=== PATIENT | female | born 1970 | race Caucasian/White ===

== ENCOUNTER 2016-12-07 14:11 | Inpatient (IN) | payer OTHER ==
[~2016-12-07] VITALS: Ht 160 cm; Wt 78.1 kg
[2016-12-07 16:48] LABS: BASOPHIL % 0.9 % (0-2); PLATELET COUNT 270 x10^3mcL (130-400); RED CELL DISTRIBUTION WIDTH 12.3 % (11.5-14.5)
[2016-12-07 16:54] LABS: CALCIUM 9.1 mg/dL (8.5-10.1); CARBON DIOXIDE 20.3 mmol/L (21-32); CHLORIDE SERUM 106 mmol/L (98-107); CREATININE SERUM 0.8 mg/dL (0.6-1.0); GFR1 > 60 mL/min; GLUCOSE SERUM 92 mg/dL (74-106); POTASSIUM SERUM 3.7 mmol/L (3.5-5.1); SODIUM SERUM 141 mmol/L (136-145)
[2016-12-07 16:59] LABS: ALBUMIN 3.6 g/dL (3.4-5.0); ALKALINE PHOSPHATASE 68 U/L (46-116); ALT/SGPT 15 U/L (14-59); AST/SGOT 12 U/L (15-37); BILIRUBIN TOTAL 0.37 mg/dL (0.20-1.00); TOTAL PROTEIN, SERUM 6.9 g/dL (6.4-8.2)
[2016-12-07] MEDS ORDERED: ESCITALOPRAM10 M1 PO (17:27)
[2016-12-07] MEDS ORDERED: PREMPRO 0.625-1 EACH PO (17:27)
[2016-12-07 18:02] LABS: UA SPECIFIC GRAVITY <=1.005 (1.005-1.035); microscopic required? YES; urine erythrocyte TRACE (NEGATIVE)
[2016-12-07 18:29] VITALS: BP 174/95
[2016-12-07 18:34] VITALS: BP 174/99
[2016-12-07 18:35] VITALS: Ht 160 cm; Wt 78.1 kg
[2016-12-07 19:24] VITALS: BP 146/93
[2016-12-07 21:44] VITALS: BP 113/80
[2016-12-08 06:00] VITALS: BP 138/91
[2016-12-08 09:08] VITALS: BP 152/97
[2016-12-08 12:47] VITALS: BP 145/83
[2016-12-08 14:07] LABS: CHOLESTEROL/HDL RATIO 4.1
[2016-12-08 17:03] LABS: T3 TOTAL 0.96 ng/mL
[2016-12-08 17:05] LABS: FREE T4 0.76 ng/dL (0.76-1.46)
[2016-12-08 18:16] VITALS: BP 127/86
[2016-12-08 19:07] LABS: AMPHETAMINE QUAL UR NONE DETECTED (NEG <=1000)
[2016-12-08 21:08] VITALS: BP 114/65
[2016-12-09 05:39] VITALS: BP 112/69
[2016-12-09 06:17] LABS: BASOPHIL % 0.9 % (0-2); PLATELET COUNT 244 x10^3mcL (130-400); RED CELL DISTRIBUTION WIDTH 12.6 % (11.5-14.5)
[2016-12-09 06:36] LABS: CALCIUM 8.8 mg/dL (8.5-10.1); CARBON DIOXIDE 22.5 mmol/L (21-32); CHLORIDE SERUM 108 mmol/L (98-107); CREATININE SERUM 0.8 mg/dL (0.6-1.0); GFR1 > 60 mL/min; GLUCOSE SERUM 98 mg/dL (74-106); MAGNESIUM 2.1 mg/dL (1.8-2.4); PHOSPHOROUS 4.3 mg/dL (2.5-4.9); POTASSIUM SERUM 4.2 mmol/L (3.5-5.1); SODIUM SERUM 142 mmol/L (136-145)
[2016-12-09 09:35] VITALS: BP 118/82
[2016-12-09] MEDS ORDERED: NIC21 TD (10:38)
[2016-12-09] MEDS ORDERED: LIPI10 PO (10:38)
[2016-12-09] MEDS ORDERED: ZES20 PO (10:39)
[2016-12-09] MEDS ORDERED: ECO81 PO (10:40)
[2016-12-09 10:58] VITALS: BP 118/82
[2016-12-09] MEDS ORDERED: ESGIC CAPSULE1 EACH PO (11:26)
== END 2016-12-09 12:20 | disposition home or self-care (01) | DRG 203 ==
LOC: ED 14:11 → DU 17:27
PROVIDERS: Emergency Medicine; ADMIT Family Medicine
DX: M94.0 Chondrocostal junction syndrome [Tietze] (principal); N39.0 Urinary tract infection, site not specified; I16.0 Hypertensive urgency; G43.909 Migraine, unspecified, not intractable, without status migrainosus; I10 Essential (primary) hypertension; F41.1 Generalized anxiety disorder; F17.210 Nicotine dependence, cigarettes, uncomplicated; E66.9 Obesity, unspecified; R31.9 Hematuria, unspecified; Z68.30 Body mass index [BMI] 30.0-30.9, adult; Z90.722 Acquired absence of ovaries, bilateral; Z72.89 Other problems related to lifestyle
CPT/HCPCS: 83880; 84439; 99406; J0696; J3010; J7030